=== PATIENT | male | born 1980 | race Caucasian/White ===

== ENCOUNTER 2018-05-13 07:38 | Emergency (ER) | payer BC ==
[~2018-05-13] VITALS: Ht 177.8 cm; Wt 99.8 kg
[2018-05-13 07:42] VITALS: BP 135/88
--- NOTE | 2018-05-13 07:49 | NUR ---
PT TAKEN TO BED 11 VIA WHEELCHAIR
--- NOTE | 2018-05-13 07:54 | NUR ---
Patient being evaluated by physician at bedside.
[2018-05-13] MEDS ORDERED: KETOROLAC 60 MG/2 ML VIAL IM ONE (07:55)
--- NOTE | 2018-05-13 07:55 | NUR ---
XRAY AT BEDSIDE
--- NOTE | 2018-05-13 08:20 | NUR ---
Patient discharged with v/s stable. Written and verbal after care instructions given and explained. Patient alert, oriented and verbalized understanding of instructions. Ambulatory with steady gait. All questions addressed prior to discharge. ID band removed. Patient advised to follow up with PMD. Rx of Motrin and [place] given. Patient educated on indication of medication including possible reaction and side effects. Opportunity to ask questions provided and answered.
[2018-05-13 08:23] VITALS: BP 135/88
== END 2018-05-13 08:20 | disposition home or self-care (01) ==
LOC: MED 07:38
DX: S93.402A Sprain of unspecified ligament of left ankle, initial encounter (principal); J45.909 Unspecified asthma, uncomplicated; X50.1XXA Overexertion from prolonged static or awkward postures, initial encounter; Y93.89 Activity, other specified; Y92.89 Other specified places as the place of occurrence of the external cause; Y99.8 Other external cause status
CPT/HCPCS: 73610; 96372; 99283; J1885; Q0092